=== PATIENT | male | born 1980 | race Caucasian/White ===

== ENCOUNTER 2025-05-10 11:48 | Emergency (ER) | payer MEDICAID ==
[~2025-05-10] VITALS: Ht 172.7 cm; Wt 71.0 kg
[2025-05-10 11:55] VITALS: O2SAT 100
[2025-05-10] MEDS: KETOROLAC 30MG/ML VIAL IM ONE (13:37)
[2025-05-10] MEDS: PREDNISONE 20MG TABLET PO SCH (13:37)
[2025-05-10] MEDS: LIDOCAINE 5% PATCH TOP SCH (13:38)
[2025-05-10] MEDS ORDERED: LIDO700A30 TP (16:22)
[2025-05-10] MEDS ORDERED: IBUP-2029 MT (16:22)
[2025-05-10] MEDS ORDERED: CYCL10TA21 MT (16:22)
[2025-05-10 16:34] VITALS: BP 129/68; PULSE 73; RESP 16; TEMP 36.8; O2SAT 100
== END 2025-05-10 16:35 | disposition home or self-care (01) ==
LOC: ER 11:48
DX: M54.50 Low back pain, unspecified (principal)
CPT/HCPCS: 99283; 72100; 96372; J1885; J7512